=== PATIENT | male | born 1970 | race Caucasian/White ===

== ENCOUNTER 2017-06-30 12:59 | Inpatient (IN) | payer MEDICARE, OTHER ==
[2017-06-30 14:54] VITALS: BMI 38.0
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
[2017-06-30] MEDS ORDERED: guaiFENesin/D-METHORPHAN HB 10 ML UNIT-DOSE CUPS PO PRN (18:04)
[2017-06-30] MEDS ORDERED: IBUPROFEN 400 MG TABLET (FP) PO PRN (18:04)
[2017-06-30] MEDS ORDERED: ACETAMINOPHEN 325 MG TABLET (FP) PO PRN (18:04)
[2017-06-30] MEDS ORDERED: LOPERAMIDE HCL 2 MG CAPSULE PO PRN (18:04)
[2017-06-30] MEDS ORDERED: MAG HYDROX/AL HYDROX/SIMETH 30 ML UNIT-DOSE CUP PO PRN (18:04)
[2017-06-30] MEDS ORDERED: MENTHOL/PHENOL 1 EACH UD MM PRN (18:04)
[2017-06-30] MEDS ORDERED: MAGNESIUM HYDROX 2400MG/30ML ORAL SUSPENSION 30 ML CUP PO PRN (18:04)
[2017-06-30] MEDS ORDERED: NICOTINE POLACRILEX 4 MG GUM BC PRN (18:04)
[2017-06-30] MEDS ORDERED: MAGNESIUM CITRATE 300 ML BOTTLE PO PRN (18:04)
[2017-06-30] MEDS ORDERED: P-EPHED 60MG/TRIPROLIDI 2.5MG TABLET PO PRN (18:04)
[2017-06-30] MEDS ORDERED: diphenhydrAMINE HCL 50 MG CAPSULE PO PRN (18:04)
[2017-06-30] MEDS ORDERED: cloNIDine HCL 0.1 MG TABLET PO PRN (18:06)
[2017-06-30] MEDS ORDERED: ALBUTEROL SO4 6.7 GM HFA INHALER IH PRN (18:07)
[2017-06-30] MEDS ORDERED: ALBUTEROL SO4 2.5/IPRATROPIUM 0.5 INH SOL 3 ML VIAL.NEB. NEB PRN (18:08)
[2017-06-30] MEDS: THIAMINE HCL 100 MG TABLET (FP) PO SCH (22:06)
[2017-06-30] MEDS: BUDESONIDE/FORMETEROL FUMARATE 80/4.5 mcg INHALER IH SCH (22:08)
[2017-06-30] MEDS: MINERAL OIL/PETROLAT/WATER TOPICAL CREAM 113 GM JAR TP SCH (22:09)
[2017-07-01] MEDS: PRENATAL VITAMINS W/ FOLIC ACID TABLET (FP) PO SCH (09:56)
[2017-07-01] MEDS: NICOTINE 21 MG/24 HOURS TOPICAL PATCH TD SCH (09:57)
[2017-07-01] MEDS: BUDESONIDE/FORMETEROL FUMARATE 80/4.5 mcg INHALER IH SCH ×2 (09:57→21:12)
[2017-07-01 10:11] LABS: MCH 29.5 pg (25.7-33.7); MCHC 32.5 g/dl (32.0-35.9); MEAN CELL VOLUME 90.6 fl (80-96); MEAN PLT VOLUME 9.3 fl (7.5-11.1); PLATELET COUNT 129 K/MM3 (134-434); RDW 14.5 % (11.9-15.9); WHITE BLOOD COUNT 4.9 K/mm3 (4.0-10.0)
[2017-07-01 10:30] LABS: ALBUMIN 2.9 g/dl (3.4-5.0); ANION GAP 5 (8-16); BILIRUBIN,TOTAL 0.6 mg/dL (0.2-1.0); CALCIUM 9.1 mg/dL (8.5-10.1); CO2 29 mmol/L (21-32); CREATININE 0.9 mg/dL (0.7-1.3); GLUCOSE,RANDOM 92 mg/dL (74-106); SGOT/AST 24 U/L (15-37); SGPT/ALT 19 U/L (12-78)
[2017-07-01 10:31] LABS: ALK PHOS 203 U/L (45-117); TOT PROT 7.1 g/dl (6.4-8.2)
[2017-07-01] MEDS ORDERED: METHADONE HCL 40 MG DISPERSABLE TABLET PO ONE (11:00)
--- NOTE | 2017-07-01 11:31 | EKG ---
Test Reason : Blood Pressure : / mmHG Vent. Rate : 072 BPM Atrial Rate : 072 BPM P-R Int : 184 ms QRS Dur : 102 ms QT Int : 410 ms P-R-T Axes : 046 066 046 degrees QTc Int : 448 ms NORMAL SINUS RHYTHM NORMAL ECG NO PREVIOUS ECGS AVAILABLE Confirmed by MATILDA XIE, KRISTEN ([id number]) on 07/01/2017 11:30:56 AM Referred By: Confirmed By:KRISTEN GREY MD
[2017-07-01] MEDS ORDERED: PNEUMOCOCCAL 23 VACCINE 0.5 ML VIAL IM ONE (12:00)
[2017-07-01] MEDS ORDERED: PNEUMOC 13-VAL CONJ-DIP CRM/PF 0.5 ML DISP.SYRIN IM ONE (12:52)
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
[2017-07-01] MEDS: THIAMINE HCL 100 MG TABLET (FP) PO SCH (21:12)
[2017-07-01] MEDS: QUEtiapine FUMARATE 100 MG TABLET (FP) PO SCH (21:13)
[2017-07-01] MEDS: MINERAL OIL/PETROLAT/WATER TOPICAL CREAM 113 GM JAR TP SCH (21:13)
[2017-07-02] MEDS: METHADONE HCL 40 MG DISPERSABLE TABLET PO SCH (06:17)
[2017-07-02] MEDS: NICOTINE 21 MG/24 HOURS TOPICAL PATCH TD SCH (09:54)
[2017-07-02] MEDS: PRENATAL VITAMINS W/ FOLIC ACID TABLET (FP) PO SCH (09:54)
[2017-07-02] MEDS: BUDESONIDE/FORMETEROL FUMARATE 80/4.5 mcg INHALER IH SCH ×2 (09:55→21:17)
[2017-07-02] MEDS: QUEtiapine FUMARATE 100 MG TABLET (FP) PO SCH (21:17)
[2017-07-02] MEDS: THIAMINE HCL 100 MG TABLET (FP) PO SCH (21:17)
[2017-07-02] MEDS: MINERAL OIL/PETROLAT/WATER TOPICAL CREAM 113 GM JAR TP SCH (22:13)
[2017-07-02] MEDS ORDERED: PT OWN MED DRAWER 7, Y5N ONE (22:15)
[2017-07-03] MEDS: METHADONE HCL 40 MG DISPERSABLE TABLET PO SCH (06:07)
[2017-07-03 09:38] LABS: URINE APPEARANCE CLEAR; URINE BILIRUBIN NEGATIVE (NEGATIVE); URINE BLOOD NEGATIVE (NEGATIVE); URINE COLOR LTYELLOW; URINE GLUCOSE (UA) NEGATIVE (NEGATIVE); URINE KETONE NEGATIVE (NEGATIVE); URINE LEUK ESTERASE NEGATIVE (NEGATIVE); URINE NITRITE NEGATIVE (NEGATIVE); URINE PROTEIN NEGATIVE (NEGATIVE); URINE UROBILINOGEN NEGATIVE mg/dL (0.2-1.0)
[2017-07-03] MEDS: PRENATAL VITAMINS W/ FOLIC ACID TABLET (FP) PO SCH (09:59)
[2017-07-03] MEDS: BUDESONIDE/FORMETEROL FUMARATE 80/4.5 mcg INHALER IH SCH ×2 (09:59→21:26)
[2017-07-03] MEDS: NICOTINE 21 MG/24 HOURS TOPICAL PATCH TD SCH (10:00)
--- NOTE | 2017-07-03 13:52 | PN ---
[facility] Progress Note Note: FURUNCULITIS OF CHIN POST SHAVING, SUBCONJUCTIVAL HEMORRHAGE MEDIAL ASPECT OF RIGHT EYE VISION OK NO TRAUMA TREATMENT KEFLEX 500 MGS PO BID FOR 7 DAYS BACTROBAN OINTMENT BID ARTIFICIAL TEARDROP 2 GTT QID RIGHT EYE
[2017-07-03] MEDS ORDERED: PT OWN MED DRAWER 7, Y5N ONE (16:35)
[2017-07-03] MEDS: ARTIFICIAL TEARS (POLYVINYL ALCOHOL 1.4%) OPTH DROPS OD SCH ×3 (17:18→21:26)
[2017-07-03] MEDS: MUPIROCIN 2% TOPICAL OINTMENT 22 GM TUBE TP SCH ×2 (17:18→21:26)
[2017-07-03] MEDS: CEPHALEXIN MONOHYDRATE 500 MG CAPSULE (UD) PO SCH ×2 (17:20→21:28)
[2017-07-03] MEDS: MINERAL OIL/PETROLAT/WATER TOPICAL CREAM 113 GM JAR TP SCH (21:27)
[2017-07-03] MEDS: THIAMINE HCL 100 MG TABLET (FP) PO SCH (21:29)
[2017-07-03] MEDS: QUEtiapine FUMARATE 100 MG TABLET (FP) PO SCH (21:29)
[2017-07-04] MEDS: METHADONE HCL 40 MG DISPERSABLE TABLET PO SCH (06:46)
[2017-07-04] MEDS ORDERED: PT OWN MED DRAWER 7, Y5N ONE ×2 (08:39→21:25)
[2017-07-04] MEDS: ARTIFICIAL TEARS (POLYVINYL ALCOHOL 1.4%) OPTH DROPS OD SCH ×4 (09:38→23:07)
[2017-07-04] MEDS: PRENATAL VITAMINS W/ FOLIC ACID TABLET (FP) PO SCH (09:38)
[2017-07-04] MEDS: CEPHALEXIN MONOHYDRATE 500 MG CAPSULE (UD) PO SCH ×2 (09:38→21:22)
[2017-07-04] MEDS: NICOTINE 21 MG/24 HOURS TOPICAL PATCH TD SCH (09:38)
[2017-07-04] MEDS: MUPIROCIN 2% TOPICAL OINTMENT 22 GM TUBE TP SCH ×2 (09:38→21:26)
[2017-07-04] MEDS: BUDESONIDE/FORMETEROL FUMARATE 80/4.5 mcg INHALER IH SCH ×2 (09:38→23:07)
[2017-07-04] MEDS: [UNRECOGNIZED DRUG - OTHER] PO SCH (09:38)
[2017-07-04] MEDS: hydrOXYzine PAMOATE 50 MG CAPSULE (FP) PO PRN (21:21)
[2017-07-04] MEDS: THIAMINE HCL 100 MG TABLET (FP) PO SCH (21:22)
[2017-07-04] MEDS: QUEtiapine FUMARATE 100 MG TABLET (FP) PO SCH (21:22)
[2017-07-04] MEDS: MINERAL OIL/PETROLAT/WATER TOPICAL CREAM 113 GM JAR TP SCH (21:26)
[2017-07-05] MEDS: METHADONE HCL 40 MG DISPERSABLE TABLET PO SCH (06:29)
[2017-07-05] MEDS ORDERED: PT OWN MED DRAWER 7, Y5N ONE ×3 (08:34→21:23)
[2017-07-05] MEDS: ARTIFICIAL TEARS (POLYVINYL ALCOHOL 1.4%) OPTH DROPS OD SCH ×4 (09:38→21:21)
[2017-07-05] MEDS: MUPIROCIN 2% TOPICAL OINTMENT 22 GM TUBE TP SCH ×2 (09:38→21:21)
[2017-07-05] MEDS: BUDESONIDE/FORMETEROL FUMARATE 80/4.5 mcg INHALER IH SCH ×2 (09:38→21:21)
[2017-07-05] MEDS: [UNRECOGNIZED DRUG - OTHER] PO SCH (09:39)
[2017-07-05] MEDS: NICOTINE 21 MG/24 HOURS TOPICAL PATCH TD SCH (09:39)
[2017-07-05] MEDS: PRENATAL VITAMINS W/ FOLIC ACID TABLET (FP) PO SCH (09:39)
[2017-07-05] MEDS: CEPHALEXIN MONOHYDRATE 500 MG CAPSULE (UD) PO SCH ×2 (09:39→21:24)
[2017-07-05] MEDS: MINERAL OIL/PETROLAT/WATER TOPICAL CREAM 113 GM JAR TP SCH (21:22)
[2017-07-05] MEDS: QUEtiapine FUMARATE 100 MG TABLET (FP) PO SCH (21:24)
[2017-07-05] MEDS: THIAMINE HCL 100 MG TABLET (FP) PO SCH (21:24)
[2017-07-06] MEDS: METHADONE HCL 40 MG DISPERSABLE TABLET PO SCH (06:17)
[2017-07-06] MEDS: CEPHALEXIN MONOHYDRATE 500 MG CAPSULE (UD) PO SCH ×2 (09:42→21:22)
[2017-07-06] MEDS: BUDESONIDE/FORMETEROL FUMARATE 80/4.5 mcg INHALER IH SCH ×2 (09:42→21:23)
[2017-07-06] MEDS: ARTIFICIAL TEARS (POLYVINYL ALCOHOL 1.4%) OPTH DROPS OD SCH ×4 (09:42→21:23)
[2017-07-06] MEDS: PRENATAL VITAMINS W/ FOLIC ACID TABLET (FP) PO SCH (09:42)
[2017-07-06] MEDS: MUPIROCIN 2% TOPICAL OINTMENT 22 GM TUBE TP SCH ×2 (09:43→21:23)
[2017-07-06] MEDS: NICOTINE 21 MG/24 HOURS TOPICAL PATCH TD SCH (09:44)
[2017-07-06] MEDS: [UNRECOGNIZED DRUG - OTHER] PO SCH (10:24)
[2017-07-06] MEDS ORDERED: PT OWN MED DRAWER 7, Y5N ONE (11:35)
[2017-07-06] MEDS: hydrOXYzine PAMOATE 50 MG CAPSULE (FP) PO PRN (21:22)
[2017-07-06] MEDS: THIAMINE HCL 100 MG TABLET (FP) PO SCH (21:22)
[2017-07-06] MEDS: QUEtiapine FUMARATE 100 MG TABLET (FP) PO SCH (21:22)
[2017-07-06] MEDS: MINERAL OIL/PETROLAT/WATER TOPICAL CREAM 113 GM JAR TP SCH (21:23)
[2017-07-07] MEDS: METHADONE HCL 40 MG DISPERSABLE TABLET PO SCH (06:31)
[2017-07-07] MEDS: PRENATAL VITAMINS W/ FOLIC ACID TABLET (FP) PO SCH (09:50)
[2017-07-07] MEDS: CEPHALEXIN MONOHYDRATE 500 MG CAPSULE (UD) PO SCH ×2 (09:50→21:23)
[2017-07-07] MEDS: NICOTINE 21 MG/24 HOURS TOPICAL PATCH TD SCH (09:51)
[2017-07-07] MEDS: BUDESONIDE/FORMETEROL FUMARATE 80/4.5 mcg INHALER IH SCH ×2 (09:51→21:23)
[2017-07-07] MEDS: ARTIFICIAL TEARS (POLYVINYL ALCOHOL 1.4%) OPTH DROPS OD SCH ×4 (09:51→21:23)
[2017-07-07] MEDS: MUPIROCIN 2% TOPICAL OINTMENT 22 GM TUBE TP SCH ×2 (09:51→21:26)
[2017-07-07] MEDS: [UNRECOGNIZED DRUG - OTHER] PO SCH (09:53)
[2017-07-07] MEDS: CLINDAMYCIN HCL 150 MG CAPSULE (FP) PO SCH ×2 (14:47→21:23)
[2017-07-07] MEDS: hydrOXYzine PAMOATE 50 MG CAPSULE (FP) PO PRN (21:23)
[2017-07-07] MEDS: THIAMINE HCL 100 MG TABLET (FP) PO SCH (21:24)
[2017-07-07] MEDS: QUEtiapine FUMARATE 100 MG TABLET (FP) PO SCH (21:24)
[2017-07-07] MEDS: MINERAL OIL/PETROLAT/WATER TOPICAL CREAM 113 GM JAR TP SCH (21:26)
[2017-07-08] MEDS: CLINDAMYCIN HCL 150 MG CAPSULE (FP) PO SCH ×3 (06:18→21:15)
[2017-07-08] MEDS: METHADONE HCL 40 MG DISPERSABLE TABLET PO SCH (06:18)
[2017-07-08] MEDS ORDERED: PT OWN MED DRAWER 7, Y5N ONE (08:46)
[2017-07-08] MEDS: CEPHALEXIN MONOHYDRATE 500 MG CAPSULE (UD) PO SCH ×2 (10:00→21:15)
[2017-07-08] MEDS: NICOTINE 21 MG/24 HOURS TOPICAL PATCH TD SCH (10:00)
[2017-07-08] MEDS: ARTIFICIAL TEARS (POLYVINYL ALCOHOL 1.4%) OPTH DROPS OD SCH ×4 (10:00→21:15)
[2017-07-08] MEDS: BUDESONIDE/FORMETEROL FUMARATE 80/4.5 mcg INHALER IH SCH ×2 (10:00→21:14)
[2017-07-08] MEDS: PRENATAL VITAMINS W/ FOLIC ACID TABLET (FP) PO SCH (10:00)
[2017-07-08] MEDS: [UNRECOGNIZED DRUG - OTHER] PO SCH (10:01)
[2017-07-08] MEDS: MUPIROCIN 2% TOPICAL OINTMENT 22 GM TUBE TP SCH ×2 (10:01→21:14)
[2017-07-08] MEDS: THIAMINE HCL 100 MG TABLET (FP) PO SCH (21:15)
[2017-07-08] MEDS: hydrOXYzine PAMOATE 50 MG CAPSULE (FP) PO PRN (21:15)
[2017-07-08] MEDS: QUEtiapine FUMARATE 100 MG TABLET (FP) PO SCH (21:15)
[2017-07-08] MEDS: MINERAL OIL/PETROLAT/WATER TOPICAL CREAM 113 GM JAR TP SCH (21:17)
[2017-07-09] MEDS: METHADONE HCL 40 MG DISPERSABLE TABLET PO SCH (06:10)
[2017-07-09] MEDS: CLINDAMYCIN HCL 150 MG CAPSULE (FP) PO SCH ×3 (06:10→22:24)
[2017-07-09] MEDS: PRENATAL VITAMINS W/ FOLIC ACID TABLET (FP) PO SCH (10:09)
[2017-07-09] MEDS: CEPHALEXIN MONOHYDRATE 500 MG CAPSULE (UD) PO SCH ×2 (10:09→22:24)
[2017-07-09] MEDS: MUPIROCIN 2% TOPICAL OINTMENT 22 GM TUBE TP SCH ×2 (10:09→22:25)
[2017-07-09] MEDS: ARTIFICIAL TEARS (POLYVINYL ALCOHOL 1.4%) OPTH DROPS OD SCH ×4 (10:09→22:24)
[2017-07-09] MEDS: BUDESONIDE/FORMETEROL FUMARATE 80/4.5 mcg INHALER IH SCH ×2 (10:10→22:25)
[2017-07-09] MEDS: NICOTINE 21 MG/24 HOURS TOPICAL PATCH TD SCH (10:10)
[2017-07-09] MEDS: [UNRECOGNIZED DRUG - OTHER] PO SCH (10:11)
[2017-07-09] MEDS ORDERED: PT OWN MED DRAWER 7, Y5N ONE (11:36)
[2017-07-09] MEDS: THIAMINE HCL 100 MG TABLET (FP) PO SCH (22:24)
[2017-07-09] MEDS: QUEtiapine FUMARATE 100 MG TABLET (FP) PO SCH (22:24)
[2017-07-09] MEDS: MINERAL OIL/PETROLAT/WATER TOPICAL CREAM 113 GM JAR TP SCH (22:27)
[2017-07-10] MEDS: METHADONE HCL 40 MG DISPERSABLE TABLET PO SCH (06:18)
[2017-07-10] MEDS: CLINDAMYCIN HCL 150 MG CAPSULE (FP) PO SCH (06:18)
[2017-07-10 07:03] VITALS: BP 157/101; PULSE 62; TEMP 97.6
[2017-07-10] MEDS: CEPHALEXIN MONOHYDRATE 500 MG CAPSULE (UD) PO SCH (09:40)
[2017-07-10] MEDS: BUDESONIDE/FORMETEROL FUMARATE 80/4.5 mcg INHALER IH SCH (09:40)
[2017-07-10] MEDS: ARTIFICIAL TEARS (POLYVINYL ALCOHOL 1.4%) OPTH DROPS OD SCH (09:40)
[2017-07-10] MEDS: PRENATAL VITAMINS W/ FOLIC ACID TABLET (FP) PO SCH (09:40)
[2017-07-10] MEDS: MUPIROCIN 2% TOPICAL OINTMENT 22 GM TUBE TP SCH (09:41)
[2017-07-10] MEDS: NICOTINE 21 MG/24 HOURS TOPICAL PATCH TD SCH (09:44)
[2017-07-10] MEDS: [UNRECOGNIZED DRUG - OTHER] PO SCH (09:44)
--- NOTE | 2017-07-10 09:58 | PN ---
Psychiatric Progress Note Vital Signs: Vital Signs Period Temp Pulse Resp BP Sys/Pan Pulse Ox Last 24 Hr 97.6 F 62 18-20 157/101 Date of Session: 07/10/17 Chief Complaint:: Discharge visit HPI: Patient addressed Alcohol,Opioid and Cannabis dependence comorbid with PTSD ,Substance induced mood disorder. ROS: Significant for BA,COPD,Hep C. Current Medications: Active Medications Generic Name Dose Route Start Last Admin Trade Name Freq PRN Reason Stop Dose Admin Acetaminophen 650 mg 06/30/17 18:04 Tylenol - PO Q4H PRN PAIN Al Hydroxide/Mg Hydroxide 30 ml 06/30/17 18:04 Mylanta Oral Suspension - PO Q6H PRN DYSPEPSIA Albuterol Sulfate 2 puff 06/30/17 18:07 Ventolin Hfa Inhaler - IH Q4H PRN SHORT OF BREATH/WHEEZING Artificial Tears 1 drop 07/03/17 14:00 07/10/17 09:40 Artificial Tears OD 1 applic QID ELEAZAR Administration Budesonide/Formoterol Fumarate 2 puff 06/30/17 22:00 07/10/17 09:40 Symbicort 80/4.5mcg - IH 2 puff BID ELEAZAR Administration Cephalexin HCl 500 mg 07/03/17 14:45 07/10/17 09:40 Keflex - PO 500 mg BID ELEAZAR Administration Clindamycin HCl 300 mg 07/07/17 14:00 07/10/17 06:18 Cleocin - PO 300 mg TID ELEAZAR Administration Clonidine 0.1 mg 06/30/17 18:06 Catapres - PO Q6H PRN HYPERTENSION Diphenhydramine HCl 50 mg 06/30/17 18:04 Benadryl - PO HSMR1 PRN INSOMNIA Eucalyptus/Menthol/Phenol/Sorbitol 1 each 06/30/17 18:04 Cepastat Lozenge - MM Q4H PRN SORE THROAT Guaifenesin 10 ml 06/30/17 18:04 Robitussin Dm - PO Q6H PRN COUGH Hydroxyzine Pamoate 50 mg 07/01/17 15:40 07/08/17 21:15 Vistaril - PO 50 mg Q4H PRN Administration ANXIETY Ibuprofen 400 mg 06/30/17 18:04 Motrin - PO Q6H PRN SEVERE PAIN Loperamide HCl 4 mg 06/30/17 18:04 Imodium - PO Q6H PRN DIARRHEA Magnesium Citrate 300 ml 06/30/17 18:04 Citroma - PO Q48H PRN CONSTIPATION Magnesium Hydroxide 30 ml 06/30/17 18:04 Milk Of Magnesia - PO DAILY PRN CONSTIPATION Methadone HCl 40 mg 07/08/17 06:00 07/10/17 06:18 Dolophine - PO 40 mg DAILY@0600 ELEAZAR Administration Multi-Ingredient Lotion 1 applic 06/30/17 22:00 07/09/17 22:27 Eucerin (Small Jar) - TP Not Given HS ELEAZAR Mupirocin 1 applic 07/03/17 14:45 07/10/17 09:41 Bactroban 2% Ointment - TP 1 applic BID ELEAZAR Administration Nicotine 21 mg 07/01/17 10:00 07/10/17 09:44 Nicoderm Patch - TD Not Given DAILY ELEAZAR Nicotine Polacrilex 4 mg 06/30/17 18:04 Nicorette Gum - BC Q2H PRN NICOTINE REPLACEMENT RX Non-Formulary Medication 50 mg 07/04/17 10:00 07/10/17 09:44 Zepatir PO 50 mg DAILY ELEAZAR Administration Multivit/Folic Acid/Iron 1 tab 07/01/17 10:00 07/10/17 09:40 Vitamins (Sjr) - PO 1 tab DAILY ELEAZAR Administration Pseudoephedrine/Triprolidine 1 combo 06/30/17 18:04 Actifed - PO TID PRN NASAL CONGESTION Quetiapine Fumarate 100 mg 07/01/17 22:00 07/09/17 22:24 Seroquel - PO 100 mg HS ELEAZAR Administration Thiamine HCl 100 mg 06/30/17 22:00 07/09/17 22:24 Vitamin B1 - PO 100 mg HS ELEAZAR Administration Current Side Effect: No Lab tests ordered: No Lab tests reviewed: Yes Provider note:: Patient completed this program today.He has met his treatment goals and will continue to address his issues on outpatient basis at [facility] rehabilitation program in the [place].Patient reports finding that Seroquel 100 mg po hs helps to cope with anxiety,mood instability,sleeping difficulties.Scripts for 30 days supply provided. Supportive therapy provided focusing on relapse prevention including support system,copibg skills utilization to maintain recovery. patient is stable for discharge today. Total face to face time:: 30 Mental Status Exam - Mental Status Exam Alert and Oriented to: Time, Place, Person Cognitive Function: Grossly Intact Patient Appearance: Well Groomed Mood: Hopeful, Euthymic Affect: Appropriate, Mood Congruent Patient Behavior: Cooperative Speech Pattern: Clear Voice Loudness: Normal Thought Process: Goal Oriented Thought Disorder: Not Present Hallucinations: Denies Suicidal Ideation: Denies Homicidal Ideation: Denies Insight/Judgement: Fair Sleep: Fair Appetite: Good Muscle strength/Tone: Normal Gait/Station: Normal Psychiatric Treatment Plan - Problem List (1) Nicotine dependence Current Visit: Yes Qualifiers: Nicotine product type: cigarettes Substance use status: in withdrawal Qualified Code(s): F17.213 - Nicotine dependence, cigarettes, with withdrawal (2) Asthma Current Visit: Yes Qualifiers: Asthma severity: mild persistent Asthma complication type: with status asthmaticus Qualified Code(s): J45.32 - Mild persistent asthma with status asthmaticus (3) COPD (chronic obstructive pulmonary disease) Current Visit: Yes Qualifiers: COPD type: emphysema Emphysema type: unilateral Qualified Code(s ): J43.0 - Unilateral pulmonary emphysema [MacLeod's syndrome] (4) Hepatitis C Current Visit: Yes Qualifiers: Viral hepatitis chronicity: carrier Qualified Code(s): B18.2 - Chronic viral hepatitis C (5) Methadone maintenance therapy patient Current Visit: Yes Comment: 40 MG VERIFICATION PENDING (6) Alcohol dependence Current Visit: Yes (7) Substance induced mood disorder Current Visit: Yes (8) Opioid dependence Current Visit: Yes (9) Cannabis dependence Current Visit: Yes (10) PTSD (post-traumatic stress disorder) Current Visit: Yes
== END 2017-07-10 10:31 | disposition home or self-care (01) | DRG 895 ==
LOC: YASAS 12:59 → Y3W 20:15
PROVIDERS: ADMIT Psychiatry & Neurology Psychiatry; ATTEND Psychiatry & Neurology Psychiatry
PROC: HZ42ZZZ Group Counseling for Substance Abuse Treatment, Cognitive-Behavioral (ICD-10-PCS; principal; 2017-07-10)
DX: F11.20 Opioid dependence, uncomplicated (principal); J45.32 Mild persistent asthma with status asthmaticus; F10.20 Alcohol dependence, uncomplicated; F12.20 Cannabis dependence, uncomplicated; F19.24 Other psychoactive substance dependence with psychoactive substance-induced mood disorder; F43.10 Post-traumatic stress disorder, unspecified; J43.0 Unilateral pulmonary emphysema [MacLeod's syndrome]; B18.2 Chronic viral hepatitis C; Z86.69 Personal history of other diseases of the nervous system and sense organs; Z91.5 Personal history of self-harm
CPT/HCPCS: 36415; 80053; 81003; 85027; 86593; 90732; 93005; 93010; G0009